=== PATIENT | female | born 1990 | race Caucasian/White ===

== ENCOUNTER 2017-09-13 15:04 | Emergency (ER) | payer SELFPAY ==
[2017-09-13 15:50] LABS: Bilirubin Small (Negative); Blood, Urine Moderate (Negative); Glucose, Urine (Dipstick) Negative (Negative); Leukocyte Negative (Negative); Nitrite Negative (Negative); Protein, Urine (Dipstick) 30 mg/dL (Neg-Trace); Urobilinogen 0.2 mg/dL (0.2-1.0)
[2017-09-13 15:54] LABS: Clarity Slightly Cloudy (Clear); Specific Gravity, Urine 1.027 (1.002-1.036); WBC/HPF 0-3 HPF (0-3)
[2017-09-13 15:55] LABS: Bacteria/HPF 3+ HPF (None Seen); Pregnancy Test - Urine (BHCG) Negative (Negative); Pregu Control Background? CLEAR/WHITE (CLR/WHITE); Pregu Control Bar Appear? YES (CONTROL BAR); Specific Gravity 1.027 (1.002-1.036)
--- NOTE | 2017-09-13 17:30 | CT ---
CT ABDOMEN AND PELVIS NONCONTRAST: 09/13/17 HISTORY: Bilateral flank pain. FINDINGS: each renal collecting system, ureter, and the urinary bladder are decompressed without stone evident. Lack of contrast limits evaluation for other abnormalities. Peripheral density associated with a dist al bowel loop has the appearance of postoperative changes. There is no evidence of obstruction. No fr ee air is visible. IMPRESSION: No CT evidence of urinary tract obstruction or calcification. POS: [facility]
== END 2017-09-13 17:00 | disposition home or self-care (01) ==
LOC: MADERS 15:04
DX: N39.0 Urinary tract infection, site not specified (principal); R19.7 Diarrhea, unspecified
CPT/HCPCS: 74176; 81003; 81015; 81025

== ENCOUNTER 2018-11-10 23:12 | Emergency (ER) | payer SELFPAY ==
[2018-11-10 23:40] LABS: Bilirubin Negative (Negative); Blood, Urine Moderate (Negative); Clarity Clear (Clear); Glucose, Urine (Dipstick) Negative (Negative); Leukocyte Moderate (Negative); Nitrite Negative (Negative); Protein, Urine (Dipstick) Negative (Neg-Trace); Urobilinogen 0.2 mg/dL (0.2-1.0)
[2018-11-10 23:41] LABS: Pregnancy Test - Urine (BHCG) Negative (Negative); Pregu Control Background? CLEAR/WHITE (CLR/WHITE); Pregu Control Bar Appear? YES (CONTROL BAR); Specific Gravity 1.004 (1.002-1.036); Specific Gravity, Urine 1.004 (1.002-1.036)
[2018-11-10 23:48] LABS: Bacteria/HPF Rare-Few HPF (None Seen); Squamous Epithelial 0-3 HPF (0-3); WBC/HPF 21-50 HPF (0-3)
[2018-11-10 23:49] LABS: Hyaline Casts/LPF NONE SEEN LPF (0-3 Hyaline)
[2018-11-10] MEDS ORDERED: Ketorolac Tromethamine 60 MG/2 ML VIAL ONE (23:59)
[2018-11-10] MEDS ORDERED: Prochlorperazine 10 MG/2 ML VIAL ONE (23:59)
[2018-11-10] MEDS ORDERED: cefTRIAXone\\ROCEPHIN 1 GM VIAL ONE (23:59)
[2018-11-10] MEDS ORDERED: Lidocaine 2% 20 ml MDV ONE (23:59)
[2018-11-11] MEDS ORDERED: HYDROcodone/Acetaminophen 5/325 mg Tablet ONE (00:38)
== END 2018-11-11 00:41 | disposition home or self-care (01) ==
LOC: MADERS 23:12
DX: N39.0 Urinary tract infection, site not specified (principal); N20.0 Calculus of kidney
CPT/HCPCS: 81003; 81015; 81025; 96372; J0696; J0780; J1885; J2001

== ENCOUNTER 2020-03-16 23:05 | Emergency (ER) | payer OTHER, SELFPAY ==
[2020-03-17] MEDS ORDERED: Ondansetron ODT 4 MG TAB ONE (00:22)
[2020-03-21 10:46] LABS: SARS-CoV-2 MS2 Positive; SARS-CoV-2 N Gene Positive; SARS-CoV-2 S Gene Positive; SARS-CoV-2 orf1ab Positive
== END 2020-03-17 00:33 | disposition home or self-care (01) ==
LOC: MADERS 23:05
DX: U07.1 COVID-19 (principal)
CPT/HCPCS: 87635; 99283; Q0162; U0003

== ENCOUNTER 2020-05-26 07:44 | Emergency (ER) | payer SELFPAY ==
[2020-05-26] MEDS ORDERED: Ketorolac Tromethamine 30 MG/ML VIAL ONE (08:24)
--- NOTE | 2020-05-26 08:32 | RAD ---
Left forearm 2 views: HISTORY: Fall, left forearm pain FINDINGS: The left radius and ulna appear intact.
--- NOTE | 2020-05-26 08:33 | RAD ---
XR Hand Lt 3 View STANDARD HISTORY: Fall, left hand pain FINDINGS: No fracture or dislocation is identified.
--- NOTE | 2020-05-26 08:35 | RAD ---
LEFT WRIST 3 VIEWS: HISTORY: Left wrist pain, injury FINDINGS: No acute fracture or dislocation is identified. If symptoms do not improve, a follow-up exam should be obtained in 7-10 days.
== END 2020-05-26 09:15 | disposition home or self-care (01) ==
LOC: MADERS 07:44
DX: S63.502A Unspecified sprain of left wrist, initial encounter (principal); W07.XXXA Fall from chair, initial encounter
CPT/HCPCS: 29125; 96372; J1885